=== PATIENT | male | born 1960 | race Two or more races ===

== ENCOUNTER 2017-10-18 08:51 | Inpatient (IN) | payer MEDICAID ==
[~2017-10-18] VITALS: Ht 160 cm; Wt 52.2 kg
--- NOTE | 2017-10-18 09:15 | NUR ---
PT CAME IN FOR CLOTTED AV FISTULA. NOTED LEGALLY BLIND. SEEN BY MD FOR EVAL. VSS. SAFETY AND COMFORT MEASURES PROVIDED. WILL MONITOR.
[2017-10-18 09:27] LABS: BASOPHILS % (AUTO) 0.4 % (0.0-2.0); EOSINOPHILS % (AUTO) 4.2 % (0.0-6.0); HEMATOCRIT 39 % (39-51); HEMOGLOBIN 13.1 g/dL (13.5-17.5); LYMPHOCYTES # (AUTO) 1.1 /CMM (0.8-4.8); LYMPHOCYTES % (AUTO) 16.6 % (20.0-44.0); MEAN CORPUSCULAR HGB CONC 34 g/dl (31.0-36.0); MEAN CORPUSCULAR VOLUME 102 fL (80-96); MONOCYTES # (AUTO) 0.5 /CMM (0.1-1.30); MONOCYTES % (AUTO) 7.3 % (2.0-12.0); NEUTROPHILS # (AUTO) 4.6 /CMM (1.8-8.9); NEUTROPHILS % (AUTO) 71.5 % (43.0-81.0); PLATELET COUNT (AUTO) 162 /CMM (150-450); RDW COEFFICIENT OF VARIATION 13.7 (11.5-15.0); RED BLOOD CELL COUNT(AUTO) 3.81 MIL/uL (4.5-6.0); WHITE BLOOD COUNT (AUTO) 6.5 K/uL (4.3-11.0)
[2017-10-18 09:46] LABS: CALCIUM, SERUM 8.1 mg/dL (8.5-10.1)
[2017-10-18 09:47] LABS: CREATININE 13.8 mg/dL (0.6-1.3)
[2017-10-18 09:52] LABS: INR 1.08 (0.87-1.13)
[2017-10-18] MEDS ORDERED: AMLO10TA4 PO (09:56)
[2017-10-18] MEDS ORDERED: FOLI1TAB16 PO (09:56)
[2017-10-18] MEDS ORDERED: DEXT15DR6 EACHEYE (09:56)
[2017-10-18] MEDS ORDERED: SEVE800T7 PO (09:56)
[2017-10-18] MEDS ORDERED: SERT50TA PO (09:56)
[2017-10-18] MEDS ORDERED: CALC667C6 PO (09:56)
[2017-10-18] MEDS ORDERED: FERR325T24 PO (09:56)
--- NOTE | 2017-10-18 11:25 | NUR ---
PAGED DR. SEWELL FOR ADMISSION
--- NOTE | 2017-10-18 11:56 | NUR ---
REPORT GIVEN TO MONTRELL MARIE FOR 308 TELE.
--- NOTE | 2017-10-18 13:00 | NUR ---
ms rn received a new admission from er, awake,alert,orientedx3,came in w/ dx of avf malfunction,will monitor patient.
[2017-10-18] MEDS ORDERED: hydrALAZINE HCL 25 MG TABLET PO PRN (14:00)
[2017-10-18] MEDS ORDERED: ACETAMINOPHEN 650 MG/20.3 ML UDC NG PRN (14:00)
[2017-10-18] MEDS ORDERED: ONDANSETRON HCL/PF 4 MG/2 ML VIAL IV PRN (14:00)
[2017-10-18] MEDS ORDERED: HYDROCODONE/APAP 5/325MG 1 EACH TABLET PO PRN (14:00)
--- NOTE | 2017-10-18 14:00 | NUR ---
ms rn was seen by dr.lee quintana/ orders made and carried out.
[2017-10-18 16:00] VITALS: BP 143/58
[2017-10-18] MEDS: CALCIUM ACETATE 667 MG TABLET PO SCH (18:17)
[2017-10-18] MEDS: FERROUS SULFATE (325 MG) 325 MG/TAB TABLET PO SCH (18:17)
[2017-10-18] MEDS: SEVELAMER CARBONATE 800 MG TABLET PO SCH (18:17)
[2017-10-18] MEDS: POLYVINYL ALCOHOL 15 ML BOTTLE EACHEYE SCH ×2 (18:19→21:23)
--- NOTE | 2017-10-18 18:45 | NUR ---
ms lew seth called w/ orders for tomorrow.
[2017-10-18 20:00] VITALS: BP 155/87
--- NOTE | 2017-10-18 20:17 | NUR ---
WASTEWATER TECHNICIAN INITIAL NOTE PT IS IN BED SLEEPING, EASILY AROUSED. NO SIGNS OF SOB OR DISTRESS, BREATHING EVENLY AND UNLABORED ON RA. DENIES PAIN AT THIS TIME. AVF NOTED ON RABIA, MALFUNCTION DUE TO HAVE A PROCEDURE TOMORROW. NPO STATUS AFTER MIDNIGHT. BED IS IN LOW AND LOCKED POSITION, CALL LIGHT WITHIN REACH. WILL CONTINUE TO MONITOR PT
[2017-10-18] MEDS ORDERED: BISACODYL (5 MG) 5 MG TABLET.DR PO PRN (22:00)
[2017-10-19] VITALS: BP 143/79
[2017-10-19] MEDS ORDERED: IV NS 0.9% 1,000 ML IV PRN
[2017-10-19 04:00] VITALS: BP 157/76
--- NOTE | 2017-10-19 06:28 | NUR ---
MECHANISM INSPECTOR CLOSING NOTE PT IS IN BED RESTING. NO SIGNS OF SOB OR DISTRESS, BREATHING EVENLY AND UNLABORED ON RA. TELE MONITOR SHOWS SR 85. IV ACCESS IS INTACT AND PATENT. PT SET FOR FISTULOGRAM PROCEDURE AT 1630, CONSENT IS IN THE CHART. NO ACUTE CHANGES THROUGHOUT THE SHIFT. ALL NEEDS WERE ANTICIPATED AND MET. BED IS IN LOW AND LOCKED POSITION, CALL LIGHT WITHIN REACH. WILL CONTINUE TO MONITOR PT
[2017-10-19 06:50] LABS: BASOPHILS % (AUTO) 0.5 % (0.0-2.0); EOSINOPHILS % (AUTO) 4.2 % (0.0-6.0); HEMATOCRIT 38 % (39-51); HEMOGLOBIN 12.9 g/dL (13.5-17.5); LYMPHOCYTES # (AUTO) 0.9 /CMM (0.8-4.8); LYMPHOCYTES % (AUTO) 12.9 % (20.0-44.0); MEAN CORPUSCULAR HGB CONC 34 g/dl (31.0-36.0); MEAN CORPUSCULAR VOLUME 103 fL (80-96); MONOCYTES # (AUTO) 0.5 /CMM (0.1-1.30); MONOCYTES % (AUTO) 6.8 % (2.0-12.0); NEUTROPHILS # (AUTO) 5.5 /CMM (1.8-8.9); NEUTROPHILS % (AUTO) 75.6 % (43.0-81.0); PLATELET COUNT (AUTO) 151 /CMM (150-450); RED BLOOD CELL COUNT(AUTO) 3.67 MIL/uL (4.5-6.0); WHITE BLOOD COUNT (AUTO) 7.2 K/uL (4.3-11.0)
[2017-10-19 07:00] LABS: INR 1.07 (0.87-1.13)
--- NOTE | 2017-10-19 07:05 | NUR ---
MS RN OPENING NOTES RECEIVED PT FROM NIGHTSVTFT NURSE IN STABLE CONDITION. PT IS A/O X3 AND LEGALLY BLIND HOWEVER DOES NOT USE ANY SAFETY OR ASSISTIVE DEVICES. NO SOB OR SIGNS OF ACUTE DISTRESS. BREATHING IS EVEN AND UNLABORED. PT IS ON RA AND SATING WELL. HE DENIES ANY PAIN AT THIS TIME. IV TO RIGHT FA NOTED TO BE PATENT AND INTACT. NO REDNESS OR SIGNS OF INFILTRATION NOTED. PT SCHEDULED FOR FISTULOGRAM @[address] OLVERA. NPO STATUS MAINTAINED POST MIDNIGHT REPORTED BY NIGHTSVTFT. PLAN OF CARE REVIEWED WITH PT. HE ALSO VERBALIZED UNDERSTANDING OF DIET INSTRUCTIONS PRIOR TO PROCEDURE. BED IN LOW LOCKED POSITION, SIDE RAILS UP X3, CALL LIGHT WITHIN PT'S REACH, BED ALARM ON FOR SAFETY. WILL CONTINUE TO MONITOR
[2017-10-19] MEDS: PANTOPRAZOLE 40 MG TABLET.DR PO SCH (07:30)
[2017-10-19 07:48] LABS: CALCIUM, SERUM 8.7 mg/dL (8.5-10.1); PHOSPHORUS 6.8 mg/dL (2.5-4.9); POTASSIUM 5.6 mmol/L (3.5-5.1)
[2017-10-19 07:56] LABS: CREATININE 15.5 mg/dL (0.6-1.3)
[2017-10-19 08:00] VITALS: BP 154/87
[2017-10-19] MEDS: SEVELAMER CARBONATE 800 MG TABLET PO SCH ×4 (08:00→19:16)
[2017-10-19] MEDS: CALCIUM ACETATE 667 MG TABLET PO SCH ×3 (08:00→19:16)
[2017-10-19] MEDS: FERROUS SULFATE (325 MG) 325 MG/TAB TABLET PO SCH ×3 (08:14→17:00)
[2017-10-19] MEDS: SERTRALINE HCL 50 MG TABLET PO SCH (08:15)
[2017-10-19] MEDS: FOLIC ACID 1 MG TABLET PO SCH (08:15)
[2017-10-19] MEDS: AMLODIPINE BESYLATE 10 MG TABLET PO SCH (08:15)
[2017-10-19] MEDS: POLYVINYL ALCOHOL 15 ML BOTTLE EACHEYE SCH ×4 (08:42→22:18)
--- NOTE | 2017-10-19 13:42 | NUR ---
MS RN NOTES: IV HYDRATION PT REFUSING IV FLUIDS AT THIS TIME. PER PT " LEAVE IT OFF AND YOU CAN PUT IT BACK LATER AFTER MY PROCEDURE"
[2017-10-19 15:30] VITALS: BP 158/84
[2017-10-19] MEDS ORDERED: HEPARIN SODIUM, PORCINE 1,000 UNIT/ML VIAL ONE (15:56)
[2017-10-19] MEDS ORDERED: LIDOCAINE 1% INJ 50 ML MDV IJ ONE (15:56)
[2017-10-19] MEDS ORDERED: THROMBIN (BOVINE) 5,000 UNITS VIAL TP ONE (15:57)
[2017-10-19] MEDS ORDERED: GELATIN SPONGE,ABSORBABLE 1 EA SPONGE TP ONE (15:57)
--- NOTE | 2017-10-19 17:15 | NUR ---
MS RN NOTES: OR CALLED IN REGARDS TO 1630 PROCEDURE. PER OR NURSE "WE ARE WAITING FOR DR. OLVERA TO ARRIVE". PT MADE AWARE HOWEVER STATES THAT HE IS HUNGRY AND NEEDS TO EAT. PER PT I WILL LEAVE AMA IF I DON'T GET SOMETHING TO EAT. THIS IS UNFAIR. WHERE IS THE DRDeb? WHY IS HE DOING THIS TO ME? I WANT TO LEAVE". DR OLVERA WAS PAGED OVERHEAD HOWEVER THERE WAS NO RESPONSE. HE WAS AGAIN CONTACTED BY THE CHARGE HOWEVER HIS COVERING PHYSICIAN STATES THAT HE IS ON HIS WAY". PT WAS AGAIN REASSURED BY BOTH MYSELF AND THE CHARGE THAT THE MD IS NEAR AND THAT HE WILL BE TAKEN DOWN PROMPTLY FOR THE PROCEDURE.
[2017-10-19] MEDS ORDERED: MIDAZOLAM HCL 2 MG/2ML VIAL ONE (17:42)
[2017-10-19] MEDS ORDERED: FENTANYL PF 100MCG/2ML AMPUL ONE (17:42)
--- NOTE | 2017-10-19 17:50 | NUR ---
PT TAKEN TO OR IN STABLE CONDITION FOR SCHEDULED PROCEDURE
--- NOTE | 2017-10-19 19:39 | NUR ---
MS RN CLOSING NOTES PT ARRIVED FROM OR IN STABLE CONDITION. PER OR NURSE, DR OLVERA DID NOT PROCEED WITH THE FISTULOGRAM HOWEVER INSERTED A NEW RIGHT IJ PERMACATH WHICH WILL BE USED FOR DIALYSIS. DIALYSIS NURSE MADE AWARE AND AT BEDSIDE. PT'S VITALS STABLE. ORDERS NOTED BY MD AND FAXED TO PHARMACY BY OR NURSE. SAFETY MEASURES IN PLACE. WILL ENDORSE TO NIGHTSHIFT NURSE FOR GREGORY
--- NOTE | 2017-10-19 19:40 | NUR ---
RN OPENING NOTES RECEIVED REPORT FROM TRACYARMIGNON FAROOQ. FOUND Pt SITTING ON EDGE OF BED EATING HIS DINNER. NO S/S OF ACUTE DISTRESS OR SOB NOTED. NO C/O PAIN AT THIS TIME. Pt IS A/OX3, CROATIAN AND SAMOAN SPEAKING, VERBAL, ABLE TO MAKE NEEDS KNOWN. Pt IS LEGALLY BLIND, BUT IS ABLE TO AMBULATE FINE. IV ACCESS ON RFA #20G. NEW RIJ PERMACATH WAS PLACED EARLIER TODAY. Pt WAITING FOR HIS HD TODAY. DIALYSIS NURSE AHMENT WILL BE COMING IN LATER TODAY FOR HD. SAFETY MEASURES IN PLACE. BED LOW, LOCKED, SIDE TABLE AND CALL LIGHT WITHIN REACH. WILL CONTINUE TO MONITOR Pt THROUGHOUT THE NIGHT FOR SAFETY.
[2017-10-19 20:00] VITALS: BP 166/77
--- NOTE | 2017-10-19 20:00 | NUR ---
RN NOTES DIALYSIS NURSE ARRIVED IN Pt's ROOM.
--- NOTE | 2017-10-19 21:30 | NUR ---
RN NOTES HD - 1L OUTPUT
[2017-10-20] MEDS: ANCEF 1 GM/50 ML D5W IV SCH ×4 (02:05→09:56)
--- NOTE | 2017-10-20 06:35 | NUR ---
RN CLOSING NOTES NO SIGNIFICANT CHANGES IN Pt's CONDITION. Pt REMAINS STABLE AT THIS TIME. NO S/S OF ACUTE DISTRESS OR SOB NOTED DURING THE SHIFT. Pt SLEPT WELL WITH EVEN AND UNLABORED RESPIRATIONS. ALL NEEDS MET AND ATTENDED TO. SAFETY MEASURES IN PLACE. WILL ENDORSE TO DAYSHIFT RN FOR Pt's GREGORY.
--- NOTE | 2017-10-20 07:48 | NUR ---
MS RN OPENING NOTES RECEIVED PT FROM NIGHTSHIFT NURSE IN STABLE CONDITION. PT IS A/O X3. NO SOB OR SIGNS OF ACUTE DISTRESS NOTED. BREATHING IS EVEN AND UNLABORED. PT IS ON RA AND SATING WELL. HE DENIES ANY PAIN AT THIS TIME. IV TO RIGHT FA NOTED TO BE PATENT AND INTACT. PT TOLERATING NS INFUSION WELL. NO REDNESS OR SIGNS OF INFILTRATION NOTED. PERMACATH TO RIGHT CHEST WALL NOTED ALONG WITH OLD EXISTING LEFT HAND AV FISTULA. BED IN LOW LOCKED POSITION, SIDE RAILS UP X3, CALL LIGHT WITHIN PT'S REACH, BED ALARM ON FOR SAFETY. WILL CONTINUE TO MONITOR
[2017-10-20 08:00] VITALS: BP 166/81
[2017-10-20] MEDS: PANTOPRAZOLE 40 MG TABLET.DR PO SCH (08:35)
[2017-10-20] MEDS: SEVELAMER CARBONATE 800 MG TABLET PO SCH ×3 (08:35→17:08)
[2017-10-20] MEDS: CALCIUM ACETATE 667 MG TABLET PO SCH ×3 (08:35→17:09)
[2017-10-20] MEDS: POLYVINYL ALCOHOL 15 ML BOTTLE EACHEYE SCH ×3 (08:35→17:00)
[2017-10-20] MEDS: FERROUS SULFATE (325 MG) 325 MG/TAB TABLET PO SCH ×3 (08:36→17:09)
[2017-10-20] MEDS: FOLIC ACID 1 MG TABLET PO SCH (08:36)
[2017-10-20] MEDS: SERTRALINE HCL 50 MG TABLET PO SCH (08:36)
[2017-10-20] MEDS: AMLODIPINE BESYLATE 10 MG TABLET PO SCH (09:00)
--- NOTE | 2017-10-20 09:14 | NUR ---
MS RN NOTES: C DIFF SAMPLE PT HAD TWO EPISODES OF LIQUID STOOL DURING THE NIGHT. HE THEN HAD ANOTHER EPISODE. A SAMPLE WAS TAKEN AND AN ORDER WAS PLACED FOR C DIFF PER HOSPITAL PROTOCOL. NO FORMS WERE FILLED PT HAS BEEN ADMITTED HERE FOR LESS THAN THREE DAYS.
--- NOTE | 2017-10-20 10:46 | NUR ---
MS RN NOTES: AM BP MED 0900 NORVASC WAS NOT GIVEN PT WAS BE DIALYZED
[2017-10-20 15:51] VITALS: BP 124/78
--- NOTE | 2017-10-20 16:53 | NUR ---
TELEPHONE ORDER GIVEN BY DR. MARIE TO D/C PT WITH ALL HOME MED, F/U WITH PRIMARY CARE, AND CONTINUE HD. WILL CARRY OUT D/C ORDER
--- NOTE | 2017-10-20 17:36 | NUR ---
MS INGOT HEADER NOTES PT WAS DISCHARGE FROM FACILITY TO [facility] IN STABLE CONDITION. DANAE THE SPOOL CLEANER OF THE FACILITY WAS MADE AWARE OF PT'S DISCHARGE AND THAT HE WILL BE ARRIVING BY [facility]. DANAE VERBALIZED THAT THERE WILL BE SOMEONE THERE TO SEE THAT THE PT ARRIVES SAFELY. ALL NEEDS WERE MET DURING SHIFT AND ORDERS CARRIED OUT ACCORDINGLY. ALL DUE MEDS GIVEN. PRIOR TO D/C. PT RECEIVED HD WHERE 2L OF FLUIDS WERE REMOVED. VITALS STABLE POST HD. HD CATHETER SITE CLEANED BY DIALYSIS NURSE AND A NEW DRESSING WAS PLACED WELL. IV WAS SUCCESSFULLY REMOVED WITH NO COMPLICATIONS. DISCHARGE INSTRUCTIONS DISCUSSED WITH PT WHO VERBALIZED FULL UNDERSTANDING. PT UNABLE TO SIGNS D/C PAPERWORK DUE TO VISUAL IMPAIRMENT THEREFORE MYSELF AND ANOTHER RN SIGNED ALL D/C PAPERWORK. VERBAL ORDERS WERE GIVEN BY DR. DAVIS TO CONTINUE ALL HOME MEDICATIONS. PT PROVIDED WITH COPIES OF D/C MATERIALS AND MED RECON. BELONGINGS VERIFIED AND CHECKED BY CHIEF ESTIMATOR. PT WAS SAFELY ESCORTED TO HOSPITAL ENTRANCE BY CHIEF ESTIMATOR AND LEFT VIA [facility] WITH ALL BELONGINGS. PINK [facility] SLIP GIVEN TO NURSING MERCHANDISE SUPPORT ASSOCIATE.
== END 2017-10-20 17:19 | disposition home or self-care (01) | DRG 182 ==
LOC: ER 08:53 → TELE 11:45 → MED 10-19 09:04
PROVIDERS: ADMIT Internal Medicine Nephrology; ATTEND Internal Medicine Nephrology
PROC: 5A1D70Z Performance of Urinary Filtration, Intermittent, Less than 6 Hours Per Day (ICD-10-PCS; 2017-10-19)
PROC: 05CA3ZZ Extirpation of Matter from Left Brachial Vein, Percutaneous Approach (ICD-10-PCS; principal; 2017-10-20)
PROC: 05H933Z Insertion of Infusion Device into Right Brachial Vein, Percutaneous Approach (ICD-10-PCS; principal; 2017-10-20)
PROC: 0JHD3XZ Insertion of Tunneled Vascular Access Device into Right Upper Arm Subcutaneous Tissue and Fascia, Percutaneous Approach (ICD-10-PCS; principal; 2017-10-20)
DX: T82.868A Thrombosis due to vascular prosthetic devices, implants and grafts, initial encounter (principal); I12.0 Hypertensive chronic kidney disease with stage 5 chronic kidney disease or end stage renal disease; N18.6 End stage renal disease; E11.22 Type 2 diabetes mellitus with diabetic chronic kidney disease; Y83.9 Surgical procedure, unspecified as the cause of abnormal reaction of the patient, or of later complication, without mention of misadventure at the time of the procedure; Y92.009 Unspecified place in unspecified non-institutional (private) residence as the place of occurrence of the external cause; D64.9 Anemia, unspecified; H54.7 Unspecified visual loss; Z79.899 Other long term (current) drug therapy; M85.9 Disorder of bone density and structure, unspecified
CPT/HCPCS: 36415; 71045-TC; 80048-TC; 83735-TC; 84100-TC; 85025-TC; 85610-TC; 85730-TC; 86850-TC; 87081-TC; 90935-TC; A4606; A6402; C1750; J0690; J1644; J2250; J2704; J3010; J3490; J7030; J7060; Z7610